=== PATIENT | female | born 1970 ===

== ENCOUNTER 2017-03-30 08:30 | Day surgery (SDC) | payer MEDICAID ==
[2017-03-30 09:02] VITALS: TEMP 98
[2017-03-30] MEDS ORDERED: Propofol 10 mg/ml Inj (20 ML) ONE (12:15)
[2017-03-30 12:28] VITALS: O2SAT 100
[2017-03-30] MEDS ORDERED: Lactated Ringer's 500 ML IV SCH (12:30)
[2017-03-30 13:22] VITALS: RESP 15
[2017-03-30 13:45] LABS: CHLORIDE 106 mmol/L (98-107); POTASSIUM 3.2 mmol/L (3.6-5.2); SODIUM 137 mmol/L (132-148)
[2017-03-30 13:48] VITALS: BMI 24.7
[2017-03-30 13:48] LABS: BLOOD UREA NITROGEN 10 mg/dL (7-17); CARBON DIOXIDE 20 mmol/L (22-30); GFR AFRICAN-AMERICAN > 60; GLUCOSE,RANDOM 72 mg/dL (65-105)
[2017-03-30 13:49] LABS: CALCIUM 8.5 mg/dl (8.6-10.4)
[2017-03-30 14:13] VITALS: BP 116/69; PULSE 60
== END 2017-03-30 14:00 | disposition home or self-care (01) ==
LOC: C.ENDO 08:30
PROVIDERS: ATTEND Internal Medicine Gastroenterology
DX: R10.13 Epigastric pain (principal); K44.9 Diaphragmatic hernia without obstruction or gangrene; K29.70 Gastritis, unspecified, without bleeding; K29.80 Duodenitis without bleeding
CPT/HCPCS: 36415; 43239; 80048; 84703; 88305; 88313; 88342; J2704; J7120